=== PATIENT | female | born 1970 | race Caucasian/White ===

== ENCOUNTER 2017-12-24 10:00 | Emergency (ER) | payer MEDICAID ==
[~2017-12-24] VITALS: Ht 157.5 cm; Wt 97.1 kg
[2017-12-24 10:14] VITALS: BP 117/74
--- NOTE | 2017-12-24 10:20 | NUR ---
PT AMBULATED TO BED 2
[2017-12-24 10:26] VITALS: BP 117/74
--- NOTE | 2017-12-24 10:26 | NUR ---
47Y/F BIB SELF C/O INTERMITTENT POUNDING HEADACHE X 3 DAYS WITH NAUSEA. DENIES EMESIS / DENIES INJURY/ FULL CLEAR SPEECH, NO FACIAL ASYMMETRY, TONGUE MIDLINE, NO DRIFT NOTED, AMBULATORY WITH STEADY GAIT. DENIES DIZZINESS.PT ADDS HAS BEEN TAKING MOTRIN AROUND THE CLOCK WITHOUT RELIEF. SKIN IS PINK/WARM/DRY; PATIENT STATES PAIN OF 9/10 AT THIS TIME; VSS; PATIENT POSITIONED FOR COMFORT; HOB ELEVATED; BEDRAILS UP X1; BED DOWN. ER MD MADE AWARE OF PT STATUS.
--- NOTE | 2017-12-24 12:29 | NUR ---
PATIENT ELOPED FROM FACILITY. DISCHARGE INSTRUCTIONS NOT GIVEN TO PATIENT. DR. SARGENT NOTIFIED.
== END 2017-12-24 12:29 | disposition left against medical advice (07) ==
LOC: MED 10:00
DX: R51 Headache (principal); E11.9 Type 2 diabetes mellitus without complications; I10 Essential (primary) hypertension; J45.909 Unspecified asthma, uncomplicated; Z91.19 Patient's noncompliance with other medical treatment and regimen
CPT/HCPCS: 81025; 99282